=== PATIENT | male | born 1975 | race Caucasian/White ===

== ENCOUNTER 2022-08-02 22:48 | Emergency (ER) | payer BC, SELFPAY ==
[2022-08-02 23:21] VITALS: BP 142/93; PULSE 72; RESP 18; TEMP 36.6; O2SAT 95; BMI 27.3
--- NOTE | 2022-08-03 00:17 | ED_ITS ---
HPI - General Adult General Date Seen: 08/03/22 Chief complaint: Ear/Nose/Throat Problem Stated complaint: ear infection both sides. Time Seen by Provider: 08/02/22 23:56 Source: patient Mode of arrival: ambulatory Limitations: no limitations History of Present Illness HPI narrative: Patient is a 47-year-old male who comes in with one month of intermittent pain in both ears. He initially saw his PCP for this and was offered antibiotics but did not take them. He was then better for a couple of weeks and now has had pain, redness of both external ears for the past several days. He believes that he cause this problem by trying to plunge his ears with his fingers a month ago. He has some chronic tinnitus that has gotten worse over the past 2-3 days and he is scheduled to see an probation agent in 48 hours. There has been no drainage from the ears. No fevers. No other URI symptoms. Related Data Home Medications Medication Instructions Recorded Confirmed No Known Home Medications 08/02/22 08/02/22 Allergies Allergy/AdvReac Type Severity Reaction Status Date / Time lactose Allergy Mild GI upset Verified 08/02/22 23:26 pollen extracts Allergy Mild Rash Verified 08/02/22 23:26 ragweed pollen Allergy Mild runny nose Verified 08/02/22 23:26 Review of Systems Narrative: Review of systems is outlined above otherwise noted to be negative. [facility] Medical History (Updated 08/03/22 @ 00:20 by Lazaro Goodman MD) Elevated LFTs Elevated TSH Lactose intolerance Micturition syncope Seasonal allergies Surgical History (Updated 08/02/22 @ 23:28 by Joslyn Samayoa RN) H/O vasectomy Social History Smoking Status: Never smoker Do you use any of these nicotine containing products: None Second hand tobacco smoke exposure: No How often do you have a drink containing alcohol: 2-3 times a week How many standard drinks containing alcohol do you have on a typical day: 1 or 2 How often do you have six or more drinks on one occasion: Less than monthly AUDIT-C Alcohol total score: 4 Non-prescribed substance use: denies use service: No Exam Narrative: Exam Narrative: Vitals noted. HEENT: Conjunctiva clear. Tympanic membranes are pearly white bilaterally. There is some redness to the external ears. There is some tenderness with palpation of the external ear on the left but nothing on the right. No drainage. His hearing is preserved. Posterior pharynx is clear without gisselle thema or exudate. Neck is supple without adenopathy, thyromegaly, carotid bruit. Lungs: Clear to auscultation in all mitchell. No wheezes, rales, rhonchi. Heart: Regular rate and rhythm without murmur. Extremities: No cyanosis or edema. Good distal pulses. Neurologic: Awake, alert, fully oriented. Neurologic exam is nonfocal. Const: Vital Signs, click to edit/add: Vital Signs - 24 hr 08/02/22 23:21 Temperature 97.8 F Pulse Rate [Right Pulse Oximeter] 72 Respiratory Rate 18 Blood Pressure [Le ft Upper Arm] 142/93 H Pulse Oximetry 95 Oxygen Delivery Me thod Room Air Course Course Hospital Course: Patient was seen and examined. I explained that this is not a standard ear infection. He has some warmth, redness, thickening of the external ear and we could certainly treat that. I have suggested that he keep his audiology appointment. Vital Signs Vital signs: Initial Vital Signs Temperature 97.8 F 08/02/22 23:21 Temperature Source Temporal Artery Scan 08/02/22 23:21 Pulse Rate 72 08/02/22 23:21 Respiratory Rate 18 08/02/22 23:21 Blood Pressure 142/93 H 08/02/22 23:21 Blood Pressure Mean 109 08/02/22 23:21 Blood Pressure Position Sitting 08/02/22 23:21 Pulse Oximetry 95 08/02/22 23:21 Oxygen Delivery Method 08/02/22 23:21 Vital Signs Temperature 97.8 F 08/02/22 23:21 Pulse Rate 72 08/02/22 23:21 Respiratory Rate 18 08/02/22 23:21 Blood Pressure 142/93 H 08/02/22 23:21 Pulse Oximetry 95 08/02/22 23:21 Oxygen Delivery Method 08/02/22 23:21 Temperature 97.8 F 08/02/22 23:21 Pulse Rate 72 08/02/22 23:21 Respiratory Rate 18 08/02/22 23:21 Blood Pressure 142/93 H 08/02/22 23:21 Pulse Oximetry 95 08/02/22 23:21 Oxygen Delivery Method 08/02/22 23:21 Discharge Plan Discharge Clinical Impression: Otalgia Patient Disposition: Home, Self-Care Condition: Stable Additional Instructions: Hot packs, Keflex for seven days, keep your audiology appointment on . Prescriptions: No Action No Known Home Medications Follow Up/Referrals: Dashawn Swift MD [Primary Care Provider] - Stand Alone Forms: [employer] Info Instructions
--- OUTSIDE RECORDS SUMMARY | 2022-08-03 00:23 | XMS_ITS | Encounter Summary ---
:1975 Author Organization [facility] Address [address] [place] [address] Care Team Providers Name Role Phone Radha Jha Primary Care Provider [phone] Encounter Details Date Type Department Care Team Description 08/26/2019 Travel Social History Tobacco Use Types Packs/Day Years Used Date Smoking Tobacco: Never Assessed Sex Assigned at Date Recorded Not on file documented as of this encounter Plan of Treatment Not on filedocumented as of this encounter Visit Diagnoses Not on filedocumented in this encounter Care Teams Belt Buckle Maker Relationship Specialty Start Date End Date Radha Jha PCP - General 08/26/19 [address] [place] [address] documented as of this encounter
--- OUTSIDE RECORDS SUMMARY | 2022-08-03 00:23 | XMS_ITS | Clinical Summary ---
:1975 Author Organization [facility] Address [address] [place] [address] Care Team Providers Name Role Phone Clinic, Radha Phillips Primary Care Provider [phone] Allergies No known active allergies Social History Tobacco Use Types Packs/Day Years Used Date Smoking Tobacco: Never Assessed Sex Assigned at Date Recorded Not on file Last Filed Vital Signs Vital Sign Reading Time Taken Comments Blood Pressure 146/83 08/26/2019 12:12 PM AGILE JAVA DEVELOPER Pulse - - Temperature 36.6 ??C (97.9 ??F) 08/26/2019 12:12 PM AGILE JAVA DEVELOPER Respiratory Rate 18 08/26/2019 12:12 PM AGILE JAVA DEVELOPER Oxygen Saturation 98% 08/26/2019 12:12 PM AGILE JAVA DEVELOPER Inhaled Oxygen Concentration - - Weight - - Height - - Body Mass Index - - Plan of Treatment Health Maintenance Due Date Last Done Comments ADVANCE CARE PLANNING 1975 ANNUAL REVIEW OF HM ORDERS 1974 CT COLONOGRAPHY 1974 FIT-DNA (Cologuard) 1974 FIT 1974 FLEX SIG 1974 HEPATITIS B IMMUNIZATION (1 of 3 - 1974 3-dose series) YEARLY PREVENTIVE VISIT 1974 COVID-19 Vaccine (#1) 1974 COLONOSCOPY 02/22/1984 COLORECTAL CANCER SCREENING 02/22/1984 HIV SCREENING 1989 HEPATITIS C SCREENING 02/22/1992 DTAP/TDAP/TD IMMUNIZATION (1 - 1999 Tdap) LIPID 2009 PHQ-2 (once per calendar year) 2021 INFLUENZA VACCINE (#1) 2022 07/05/2016 IPV IMMUNIZATION Aged Out No longer eligi ble based on patient's age to complete this topic MENINGITIS IMMUNIZATION Aged Out No longe r eligible based on patient's age to complete this topic Pneumococcal Vaccine: Pediatrics Aged Out No longer eligible based on (0 to 5 Years) and At-Risk patie nt's age to complete Patients (6 to 64 Years) this to pic Insurance Payer Benefit Plan / Subscriber ID Effective Dates Phone Addre ss Type Group BCBS BCBS OUT OF [id number] 2018-Present [phone] [address] [address] [place] [address] Care Teams Bander Relationship Specialty Start Date End Date Clinic, Radha Phillips PCP - General 08/26/19 [address] [place], [place] [id number]
--- OUTSIDE RECORDS SUMMARY | 2022-08-03 00:23 | XMS_ITS | Encounter Summary ---
:1975 Author Organization [facility] Address [address] [place] [address] Care Team Providers Name Role Phone Clinic, Radha Phillips Primary Care Provider [phone] Reason for Visit Reason Comments Dysuria Encounter Details Date Type Department Care Team Description [facility] al[facility]ia Glover MD [address] [facility] [id number] [address] [facility] [phone] [place], [place] [address] (Wo rk) Social History Tobacco Use Types Packs/Day Years Used Date Smoking Tobacco: Never Assessed Sex Assigned at Date Recorded Not on file documented as of this encounter Last Filed Vital Signs Vital Sign Reading Time Taken Comments Blood Pressure 146/83 08/26/2019 12:12 PM WHITE LEAD GRINDER Pulse - - Temperature 36.6 ??C (97.9 ??F) 08/26/2019 12:12 PM WHITE LEAD GRINDER Respiratory Rate 18 08/26/2019 12:12 PM WHITE LEAD GRINDER Oxygen Saturation 98% 08/26/2019 12:12 PM WHITE LEAD GRINDER Inhaled Oxygen Concentration - - Weight - - Height - - Body Mass Index - - documented in this encounter Discharge Instructions Discharge InstructionsRoberto Wolfe MD - 08/26/2019 2:35 PM WHITE LEAD GRINDER Continue oral hydration at home this can be 4 to 6 glasses of 8 ounces of water in a day. Return with severe increasing abdominal pain inability to urinate at all fever or continued decreased urine output even with normal hydration. Follow-up with urology with your history of prostatic hypertrophy. E LEAD GRINDER AttachmentsThe following attachments cannot be sent through Care Everywhere. Dehydration (Guinean)documented in this encounter ED Notes Obdulia Mendez RN - 08/26/2019 2:49 PM CST Pt discharged home. Verbal and written instructions given and explained. All questions answered. E LEAD GRINDER Yash Hinson RN - 08/26/2019 12:11 PM CST Pt arrives with low back pain and decreased urine output since yesterday. Denies hematuria currently. ABCs intact. E LEAD GRINDER Roberto Wolfe MD - 08/26/2019 12:01 PM CST History Chief Complaint: Urination issues HPI Kameron Hernández is a 44 year old male who presents today with decreased urine output. The patient states that he has had bilateral lower back pain that has been intermittent for quite some time. He states he woke up this morning and had decreased urine output. He states he may be dehydrated but has been drinking fluids all morning. He states he does have an enlarged prostate but does not take medications. He denies hematuria Allergies: Lactose ? Pollen Extracts ? Ragweed Medications: The patient is not currently taking any prescribed medications. Past Medical History: History reviewed. No pertinent past medical history. Past Surgical History: Vasectomy EGD Family History: Father - heart disease, hypertension Social History: The patient was accompanied to the ED alone. Smoking Status: Never Smokeless Tobacco: Never Alcohol Use: Yes Marital Status: Single Review of Systems Genitourinary: Positive for difficulty urinating. Negative for hematuria. Musculoskeletal: Positive for back pain. All other systems reviewed and are negative. Physical Exam Patient Vitals for the past 24 hrs: BP Temp Temp src Heart Rate Resp SpO2 08/26/19 1212 (!) 146/83 97.9 ??F (36.6 ??C) Temporal 57 18 98 % Physical Exam Vitals signs and nursing note reviewed. HENT: Head: Normocephalic. Right Ear: Tympanic membrane normal. Left Ear: Tympanic membrane normal. Nose: Nose normal. Mouth/Throat: Mouth: Mucous membranes are moist. Eyes: Pupils: Pupils are equal, round, and reactive to light. Cardiovascular: Rate and Rhythm: Normal rate. Pulmonary: Effort: Pulmonary effort is normal. Abdominal: General: Abdomen is flat. Palpations: Abdomen is soft. Musculoskeletal: Normal range of motion. Skin: General: Skin is warm. Capillary Refill: Capillary refill takes less than 2 seconds. Neurological: General: No focal deficit present. Mental Status: He is alert. Emergency Department Course Laboratory: Laboratory results were communicated with the patient who voiced understanding of the findings. UA: Negative Emergency Department Course: Nursing notes and vitals reviewed. (1:20 PM) I performed an exam of the patient as documented above. Urine sent to the lab for further testing, results above. 1432 I rechecked the patient and discussed the results of their workup thus far. Findings and plan explained to the Patient. Patient discharged home with instructions regarding supportive care, medications, and reasons to return. The importance of close follow-up was reviewed. Impression & Plan Medical Decision Making: Patient presents with decreased urine output. Patient is a 44-year-old otherwise healthy male who states he has had slightly decreased urine for the last 24 hours. Patient's had no pain with urination no frequency or urgency no gross hematuria. Patient does admit mid to prostatic hypertrophy. Bedside bladder scan shows no significant urinary retention and urinalysis is normal. Patient seems to be quite upset and concerned about decreased urine output. I doubt renal failure in this 44-year-old male who is urinating and emergency room urinalysis shows no protein no abnormalities blood pressure and heart rate are normal. Patient was offered reassurance and follow-up with primary care and return with worsening condition. Diagnosis: ICD-10-CM 1. Decreased urine output R34 Disposition: Discharged to home. Scribe Disclosure: I, Nael Owens, am serving as a scribe at 1:20 PM on 08/26/2019 to document services personally performed by Roberto Wolfe MD based on my observations and the provider's statements to me. 08/26/2019 [facility] EMERGENCY DEPARTMENT Roberto Wolfe MD 08/29/19 0522 E LEAD GRINDER documented in this encounter Plan of Treatment Not on filedocumented as of this encounter Procedures Procedure Name Priority Date/Time Associated Comments Diagnosis ROUTINE UA WITH STAT 08/26/2019 12:21 Results for this MICROSCOPIC PM WHITE LEAD GRINDER procedure are i n the results section. documented in this encounter Results Routine UA with microscopic (08/26/2019 12:21 PM WHITE LEAD GRINDER) [facility] Method Time Signature Color Urine Light Yellow 08/26/2019 [facility] 12:35 PM [facility] Appearance Urine Clear 08/26/2019 [facility] 12:35 PM [facility] Glucose Urine Negative NEG^Negat 08/26/2019 [facility] joaquin mg/dL 12:35 [facility] Bilirubin Urine Negative NEG^Negat 08/26/2019 [facility] joaquin 12:35 PM [facility] Ketones Urine Negative NEG^Negat 08/26/2019 [facility] joaquin mg/dL 12:35 PM [facility] Specific [place] 1.022 1.003 - 08/26/2019 [facility] Urine 1.035 12:35 PM [facility] Blood Urine Negative NEG^Negat 08/26/2019 [facility] joaquin 12:35 PM [facility] pH Urine 5.5 5.0 - 7.0 08/26/2019 [facility] pH 12:35 [facility] Protein Albumin Negative NEG^Negat 08/26/2019 [facility] Urine joaquin mg/dL 12:35 PM [facility] Urobilinogen Normal 0.0 - 2.0 08/26/2019 [facility] mg/dL mg/dL 12:35 PM [facility] Nitrite Urine Negative NEG^Negat 08/26/2019 [facility] joaquin 12:35 PM [facility] Leukocyte Negative NEG^Negat 08/26/2019 [facility] Esterase Urine joaquin 12:35 PM [facility] Source Midstream 08/26/2019 [facility] Urine 12:21 PM [facility] WBC Urine 1 0 - 5 08/26/2019 [facility] /HPF 12:35 [facility] RBC Urine <1 0 - 2 08/26/2019 [facility] /HPF 12:35 PM [facility] Specimen (Source) Anatomical Collection Method Collection Time Re ceived Time Location / / Volume Laterality Examination of 08/26/2019 12:21 0 midstream urine PM WHITE LEAD GRINDER 12:26 PM WHITE LEAD GRINDER specimen (procedure) Roberto Wolfe MD LAB - URINE ORDERABLES Performing Organization Address City/State/ZIP Code Phon e Number M [facility] [address], [place] [address] [facility] [address], [place] [address] [facility] [phone] documented in this encounter Visit Diagnoses Diagnosis Decreased urine output documented in this encounter Care Teams Auto Clutch Rebuilder Relationship Specialty Start Date End Date Clinic, Radha Phillips PCP - General 08/26/19 [address] [place] [address] documented as of this encounter
--- OUTSIDE RECORDS SUMMARY | 2022-08-03 00:23 | XMS_ITS | Clinical Summary ---
:1975 Author Organization [facility] [employer] [facility] [place] [address] Care Team Providers Name Role Phone Agusto Negrete MD Primary Care Provider [phone] Allergies Active Allergy Reactions Severity Noted Date Comments Lactose GI Upset 06/20/2013 Pollen Extracts Rash 06/20/2013 Ragweed Runny Nose 11/15/2017 Medications Medication Sig Dispensed Refills Start Date End Date Status medication order Arjuna (natural 0 01/12/2022 Active composer remedy for high blood pressure) 1 capsul daily cholecalciferol (Vitamin Take 1 Capsule 0 01/12/2022 Active D-3) 2,000 unit capsule (2,000 units) by mouth once daily. Active Problems Problem Noted Date Micturition syncope 10/22/2016 Overview: Occurred at night Sep 2016. Abdominal pain, epigastric 08/12/2013 Overview: EGD 07/2013 Reactive gastropathy Elevated liver enzymes 06/02/2013 Overview: Patient currently taking unknown herbal supplements over the counter. Recommended to discontinue these and will recheck. DO Casi Fisher................... 06/02/2013 4:08 PM October 2016: liver chemistry tests normal except slightly high Bilirubin. Favor Gilbert's Elevated TSH 07/27/2009 Vitamin D deficiency 05/14/2009 Encounters Date Type Specialty Care Team Description 07/04/2022 Telephone Dashawn Swift Results MD 06/23/2022 Hospital Encounter Dashawn Swift MD 06/23/2022 Telephone Agusto Negrete Results (Nasir r ECG MD [facility] Report) 06/20/2022 Nurse/Clinic Staff Device Ch suhas (Holter Only return) 06/20/2022 Orders Only Clarence Pickett 2 scans: (2-Ord ) Holter [facility] Report ([id number]) 06/20/2022 Travel 06/15/2022 Nurse/Clinic Staff Device Ch suhas (E-Patch Only Placement) 06/15/2022 Travel 06/06/2022 Office Visit Dashawn Swift Rash (Star donovan a week ago MD with a lump beh ind his left ear and th en he got a blister like open area on the top of h is head.); Heart P roblem (He still is johnson ving PVC's); Tremors (Patient's MGF had Parkinson's so this is worrisome.) 06/05/2022 Travel from Last 3 Months Immunizations Name Administration Dates Next Due Influenza, IIV4 10/25/2019, 07/05/2016 Td (Age >=7 Years) 02/18/2003 Tdap 10/21/2016 Family History Medical History Relation Name Comments Other Brother fatty liver, and ? Gilbert's? Heart Disease Father Hypertension Father Other Father fatty liver Other Maternal Grandfather lazy eye Good Health Mother Relation Name Status Comments Brother Father Maternal Grandfather Mother Social History Tobacco Use Types Packs/Day Years Used Date Smoking Tobacco: Never Smokeless Tobacco: Never Tobacco Cessation: Counseling Given: Yes Alcohol Use Standard Drinks/Week Comments Yes 0 (1 standard drink = 0.6 oz pure alcoho l) 4-5 drinks weekly Sex Assigned at Date Recorded Not on file Obstetrics History Last Filed Vital Signs Vital Sign Reading Time Taken Comments Blood Pressure 120/62 06/06/2022 2:22 PM CDT Pulse 58 06/06/2022 2:22 PM CDT Temperature 36.7 ??C (98 ??F) 06/06/2022 2:22 PM CDT Respiratory Rate 16 12/05/2009 9:01 AM CDT Oxygen Saturation 97% 02/03/2022 2:09 PM CDT Inhaled Oxygen Concentration - - Weight 88.8 kg (195 lb 12.8 oz) 06/06/2022 2:22 PM CDT Height 180 cm (5' 10.87) 10/25/2019 7:06 AM SALES ENABLEMENT CONSULTANT Body Mass Index 27.41 10/25/2019 7:06 AM SALES ENABLEMENT CONSULTANT Plan of Treatment Upcoming Encounters Date Type Specialty Care Team Description 08/04/2022 Office Visit Maxine Webb, AuD [address] [place], [place] [address] (Wo rk) Health Maintenance Due Date Last Done Comments HIV for age 15-65 1989 Hepatitis C screening for age 0702/22/1992 18-79 Colonoscopy through age 75 2019 BMI (ht and wt on same day) for 10/24/2020 10/25/2019, 04/21, age 18+ 04/19/2018, Additional history exists Depression screening for age 12+ 10/24/2020 10/25/2019, , 12/31/2015 COVID-19 vaccine series (3 - 03/06/2021 01/09/2021, 021 Booster for Moderna series) Influenza for age 9-49 04/21/2022 10/25/2019, 07/05/2016 Lipids for age 45-75 10/24/2024 10/25/2019, 05/31/2013, 03/19/2008 Tetanus booster 10/21/2026 10/21/2016, 02/18/2003 Tdap Completed 10/21/2016 Procedures Procedure Name Priority Date/Time Associated Diagnosis Comme nts EXTENDED HOLTER Routine 06/23/2022 12:00 AM CDT Palpitations EXTENDED HOLTER Routine 06/15/2022 2:33 PM CDT Palpitations from Last 3 Months Results (ABNORMAL) EXTENDED HOLTER (06/23/2022 12:00 AM CDT) Narrative This result has an attachment that is no t available. Dashawn Swift MD CARDIAC SERVICES ORD from Last 3 Months Insurance Payer Benefit Plan / Subscriber ID Effective Dates Phone Addre ss Type Group BLUE CROSS BLUE CROSS HIGH [id number] 2020-Present [address] [address] [place] [address] (Work) [id number] Care Teams Associate Sales Representative Relationship Specialty Start Date End Date Agusto Negrete MD PCP - General Family Practice 07/24/12 [facility] [address] [place] [address]
== END 2022-08-03 00:45 | disposition home or self-care (01) ==
PROVIDERS: Emergency Provider Family Medicine; PCP Family Medicine
DX: H92.03 Otalgia, bilateral (principal)
CPT/HCPCS: 99281; 99282